=== PATIENT | male | born 1945 | race Caucasian/White ===

== ENCOUNTER 2018-04-19 13:41 | Inpatient (IN) | payer MEDICARE, BC ==
[~2018-04-19] VITALS: Ht 165.1 cm; Wt 70.0 kg
[2018-04-19] MEDS ORDERED: IV NORMAL SALINE 1,000ML 1,000 ML IV ONE ×2 (14:00→14:15)
[2018-04-19 14:28] LABS: ALBUMIN 3.5 g/dL (3.4-5.0); ALBUMIN/GLOBULIN RATIO 1.1 (1.0-1.7); CALCIUM 8.6 mg/dL (8.5-10.1); CREATININE 1.6 mg/dL (0.7-1.3); GFR 42.8; MAGNESIUM 1.7 mg/dL (1.8-2.4); POTASSIUM 4.1 mmol/L (3.5-5.1); TOTAL BILIRUBIN 0.6 mg/dL (0.2-1.0); TOTAL PROTEIN 6.8 g/dL (6.4-8.2)
[2018-04-19 14:30] LABS: BASO # 0.1 x10^3/uL (0.0-0.2); BASO % 1 % (0-3); EOS # 0.2 x10^3/uL (0.0-0.7); EOS % 2 % (0-3); HEMATOCRIT 48.6 % (39.0-53.0); HEMOGLOBIN 16.1 g/dL (13.0-17.5); LYMPH # 4.2 x10^3/uL (1.0-4.8); LYMPH % 40 % (24-48); MEAN CORPUSCULAR HEMOGLOBIN 29 pg (25-35); MEAN CORPUSCULAR HGB CONC 33 g/dL (31-37); MEAN CORPUSCULAR VOLUME 86 fL (79-100); MONO # 0.7 x10^3/uL (0.0-1.1); MONO % 6 % (0-9); NEUT # 5.3 x10^3uL (1.8-7.7); NEUT % 51 % (31-73); RED BLOOD COUNT 5.66 x10^6/uL (4.30-5.70); RED CELL DISTRIBUTION WIDTH 14.4 % (11.5-14.5); WHITE BLOOD COUNT 10.4 x10^3/uL (4.0-11.0)
--- NOTE | 2018-04-19 15:05 | RAD ---
Examination: CT head, cervical spine, maxillofacial bones without contrast CT HEAD INDICATION: SYNCOPE/FELL COMPARISON: None Available. Exposure: One or more of the following individualized dose reduction techniques were utilized for this examination: 1. Automated exposure control 2. Adjustment of the mA and/or kV according to patient size 3. Use of iterative reconstruction technique TECHNIQUE: 5 mm contiguous axial images were obtained from the skull base to the vertex in both bone and soft tissue algorithm. FINDINGS: Bilateral basal ganglia calcifications identified. No evidence of acute intracranial hemorrhage. No extra-axial fluid collections. No mass effect or midline shift. Ventricular size is appropriate. Basal cisterns are patent. No fractures identified.Colvin-white differentiation is preserved.Globes and orbits are within normal limits. CT CERVICAL SPINE INDICATION: SYNCOPE/FELL COMPARISON: None Available. Technique: 2.5 mm contiguous axial images were obtained from the skull base through the cervicothoracic junction in both bone and soft tissue algorithm. Additional sagittal and coronal reconstructions were also performed. FINDINGS: There is severe intervertebral disc height loss identified at C4-C5, C5-C6, C6-C7 vertebral levels. The bilateral facets are well aligned. Linear sclerotic density identified in the intervertebral disc space at C6-C7 vertebral level could be an old disc spacer. There is moderate posterior disc bulge identified at C5-C6, vertebral levels. There is a 4 mm anterolisthesis of C4 on C5 and C7 on T1. The bilateral facets are well aligned. Moderate multilevel facet degenerative changes cervical spine. Mild emphysematous is identified in the apical lungs. Examination limited due to motion artifact. No obvious fracture line visualized. EXAM: CT FACIAL BONES WITHOUT CONTRAST History: SYNCOPE/FELL COMPARISON: 09/27/2008 TECHNIQUE: Noncontrast images of the facial bones are performed. Coronal and sagittal reformatted images are also presented for interpretation. FINDINGS: The bilateral orbital globes appear intact. There is oblique lucency identified in the posterolateral wall of the left maxillary sinus extending anteriorly probably nondisplaced fracture, best visualized on coronal image 27. Small mucosal thickening or density identified in the left maxillary sinus. The orbital atkins appear intact. IMPRESSION: 1. No acute intracranial findings. 2. Oblique lucency identified in the posterolateral wall of the left maxillary sinus extending anteriorly into its anterior wall, question nondisplaced fracture. Correlate for point tenderness. 3. Severe degenerative changes cervical spine as described above. If there is neck pain recommend MRI for further evaluation. Electronically signed by: Eliezer Solorio MD (04/19/2018 3:02 PM) [facility]
[2018-04-19 15:09] LABS: BACTERIA,URINE 0 /HPF (0-FEW); BILIRUBIN,URINE NEG (NEG); CLARITY,URINE CLEAR; COLOR,URINE YELLOW; GLUCOSE,URINE NEG (NEG); HYALINE CASTS, URINE OCC /HPF; NITRITE,URINE NEG (NEG); RBC,URINE 0 /HPF (0-2); SQUAMOUS EPITHELIAL CELL,UR OCC /LPF; UROBILINOGEN,URINE 0.2 mg/dL (0.2 mg/dL); WBC,URINE OCC /HPF (0-4)
--- NOTE | 2018-04-19 15:15 | RAD ---
EXAM: CHEST 1 VIEW History: Syncope COMPARISON: 11/25/2012 TECHNIQUE: Single portable radiograph of the chest FINDINGS: Low lung volumes and technique accentuates heart size and pulmonary vascularity. Mild right lung base airspace opacities likely atelectasis or infiltrate. Defibrillator pad projects over the right chest. IMPRESSION: Mild right lung base airspace opacity likely atelectasis or infiltrate. Electronically signed by: Eliezer Solorio MD (04/19/2018 3:12 PM) [facility]
[2018-04-19 15:36] LABS: AMPHETAMINE/METHAMPHETAMINE NEG (NEG); BARBITURATES NEG (NEG); BENZODIAZEPINES NEG (NEG); CANNABINOIDS POS (NEG); COCAINE NEG (NEG); METHADONE NEG (NEG); OPIATES NEG (NEG); PHENCYCLIDINE NEG (NEG)
--- NOTE | 2018-04-19 15:49 | PHYS DOC ---
Past History Past Medical History: COPD, GERD, High Cholesterol, Hypertension, Other Past Surgical History: Other Alcohol Use: None Drug Use: None Adult General Chief Complaint Chief Complaint: SYNCOPE HPI HPI Patient is a 72 year old male who brought in by EMS because of syncope and facial injury. Patient states he finished with his shopping and [employer] and while he was at parking lot he felt lightheadedness with dizziness and generalized weakness and shortness of breath without chest pain and focal neurodeficit. Patient had a syncopal episode that was witnessed by bystanders without seizure activity and fell and injured his face. EMS reported that patient had bradycardia without hypertension and was alert and oriented. She was alert and oriented had unable to ER and complaining of pain in his upper lip with laceration. Patient had blood pressure of 70s over 40s with heart rate of 50s at arrival to ER. Patient is Up-to-date with his tetanus immunization. Review of Systems Review of Systems Constitutional: Denies fever or chills [] Eyes: Denies change in visual acuity, redness, or eye pain [] HENT: Denies nasal congestion or sore throat [] Respiratory: Reports shortness of breath and chronic cough Cardiovascular: No additional information not addressed in HPI [] GI: Denies abdominal pain, nausea, vomiting, bloody stools or diarrhea [] : Denies dysuria or hematuria [] Musculoskeletal: Denies back pain or joint pain [] Integument: Denies rash or skin lesions [] Neurologic: Denies headache, focal weakness or sensory changes [] Endocrine: Denies polyuria or polydipsia [] All other systems were reviewed and found to be within normal limits, except as documented in this note. Current Medications Current Medications Current Medications Medications (Trade) Dose Ordered Sig/Gloria Start Time Stop Time Status Last Admin Dose Admin Sodium Chloride 1,000 ml @ 1,000 mls/hr 1X ONCE 04/19/18 14:15 04/19/18 15:14 04/19/18 14:00 1,000 MLS/HR Allergies Allergies Allergies Coded Allergies Type Severity Reaction Last Updated Verified No Known Drug Allergies 04/19/18 No Physical Exam Physical Exam Constitutional: Well developed, well nourished, mild acute distress, non-toxic appearance. [] HENT: Normocephalic, 1 cm longitudinal laceration of the inside of the upper lip in midline area with mild bleeding, bilateral external ears normal, oropharynx moist, no oral exudates, nose normal. [] Eyes: PERRLA, EOMI, conjunctiva normal, no discharge. [] Neck: Normal range of motion, no tenderness, supple, no stridor. [] Cardiovascular: Bradycardia, no murmur [] Lungs & Thorax: Bilateral breath sounds clear to auscultation [] Abdomen: Bowel sounds normal, soft, no tenderness, no masses, no pulsatile masses. [] Skin: Warm, dry, no erythema, no rash. [] Back: No tenderness, no CVA tenderness. [] Extremities: No tenderness, no cyanosis, no clubbing, ROM intact, no edema. [] Neurologic: Alert and oriented X 3, normal motor function, normal sensory function, no focal deficits noted. [] Psychologic: Affect normal, judgement normal, mood normal. [] Current Patient Data Vital Signs Vital Signs Date Time Temp Pulse Resp B/P (MAP) Pulse Ox O2 Delivery O2 Flow Rate FiO2 04/19/18 14:55 88 20 125/64 (84) 98 Room Air 4.0 04/19/18 13:42 97.5 Lab Results Laboratory Tests Test 04/19/18 13:48 04/19/18 14:40 White Blood Count 10.4 x10^3/uL (4.0-11.0) Red Blood Count 5.66 x10^6/uL (4.30-5.70) Hemoglobin 16.1 g/dL (13.0-17.5) Hematocrit 48.6 % (39.0-53.0) Mean Corpuscular Volume 86 fL (79-100) Mean Corpuscular Hemoglobin 29 pg (25-35) Mean Corpuscular Hemoglobin Concent 33 g/dL (31-37) Red Cell Distribution Width 14.4 % (11.5-14.5) Platelet Count x10^3/uL (140-400) Neutrophils (%) (Auto) 51 % (31-73) Lymphocytes (%) (Auto) 40 % (24-48) Monocytes (%) (Auto) 6 % (0-9) Eosinophils (%) (Auto) 2 % (0-3) Basophils (%) (Auto) 1 % (0-3) Neutrophils # (Auto) 5.3 x10^3uL (1.8-7.7) Lymphocytes # (Auto) 4.2 x10^3/uL (1.0-4.8) Monocytes # (Auto) 0.7 x10^3/uL (0.0-1.1) Eosinophils # (Auto) 0.2 x10^3/uL (0.0-0.7) Basophils # (Auto) 0.1 x10^3/uL (0.0-0.2) Platelet Estimate Pending Prothrombin Time 9.6 SEC (9.4-11.4) Prothrombin Time INR 1.0 (0.9-1.1) PTT 23 SEC (23-33) D-Dimer (Kirsten) 0.84 mg/L (0.00-0.50) H Sodium Level 140 mmol/L (136-145) Potassium Level 4.1 mmol/L (3.5-5.1) Chloride Level 105 mmol/L (98-107) Carbon Dioxide Level 27 mmol/L (21-32) Anion Gap 8 (6-14) Blood Urea Nitrogen 19 mg/dL (8-26) Creatinine 1.6 mg/dL (0.7-1.3) H Estimated GFR (Cockcroft-Gault) 42.8 BUN/Creatinine Ratio 12 (6-20) Glucose Level 153 mg/dL (70-99) H Lactic Acid Level 2.8 mmol/L (0.4-2.0) H Calcium Level 8.6 mg/dL (8.5-10.1) Magnesium Level 1.7 mg/dL (1.8-2.4) L Total Bilirubin 0.6 mg/dL (0.2-1.0) Aspartate Amino Transferase (AST) 24 U/L (15-37) Alanine Aminotransferase (ALT) 23 U/L (16-63) Alkaline Phosphatase 70 U/L (46-116) Creatine Kinase 135 U/L (39-308) Troponin I Quantitative 0.035 ng/mL (0-0.055) ZQ-Nqs-K-Type Natriuretic Peptide 120 pg/mL (0-124) Total Protein 6.8 g/dL (6.4-8.2) Albumin 3.5 g/dL (3.4-5.0) Albumin/Globulin Ratio 1.1 (1.0-1.7) Urine Collection Type Unknown Urine Color Yellow Urine Clarity Clear Urine pH 6.5 Urine Specific [place] 1.015 Urine Protein 30 mg/dl (NEG-TRACE) Urine Glucose (UA) Neg mg/dL (NEG) Urine Ketones (Stick) Neg mg/dL (NEG) Urine Blood Neg (NEG) Urine Nitrite Neg (NEG) Urine Bilirubin Neg (NEG) Urine Urobilinogen Dipstick 0.2 mg/dL (0.2 mg/dL) Urine Leukocyte Esterase Neg (NEG) Urine RBC 0 /HPF (0-2) Urine WBC Occ /HPF (0-4) Urine Squamous Epithelial Cells Occ /LPF Urine Bacteria 0 /HPF (0-FEW) Urine Hyaline Casts Occ /HPF Urine Mucus Mod /LPF EKG EKG EKG interpreted by me. EKG at 1447 showed sinus bradycardia at rate of 53, first -degree AV block with IA of 246, left barnett axis, T-wave abnormality in lateral leads, no acute ST and T-wave abnormalities, repeat EKG at 1356 showed sinus rhythm at rate of 77, prolonged IA, leftward axis, no acute ST and T-wave abnormalities. Radiology/Procedures Radiology/[place] [address] IMAGING REPORT Signed PATIENT: SLOAN LUJAN ACCOUNT: [id number] : 1945 LOCATION: ICU AGE: 72 SEX: M EXAM STATUS: ADM IN ORD. PHYSICIAN: RAHUL OWUSU MD REASON: syncope, elevated d-dimer PROCEDURE: CT ANGIOGRAPHY CHEST Examination: CT ANGIOGRAPHY CHEST History: Short of breath, syncope, Omni 350 70ml iv was given, creat 1.6, GFR 43ml Comparison/Correlation: None Findings: Axial images of chest were obtained following IV contrast contrast arteriography protocol. Sagittal and coronal reformatted images provided. MIP images provided. Minimal right middle lobe atelectasis is present at the anteromedial basilar aspect. No suspicious pulmonary nodule or mass lesions. Thoracic aorta is unremarkable for the patient's age although it is not opacified for arteriographic purposes. Cholecystectomy noted. Left renal cyst measuring 2.4 cm diameter is present and of approximately 25 Hounsfield units. There is a corresponding cyst noted at this site on 11/21/2018 CT abdomen and pelvis with contrast exam. No suspicious change although this finding is not included fully for purposes of this exam. Degenerative changes of the lower cervical spine and mid thoracic spine noted. Impression: No pulmonary arterial thromboembolic disease. No infiltrate. PQRS Compliance Statement: One or more of the following individualized dose reduction techniques were utilized for this examination: 1. Automated exposure control 2. Adjustment of the mA and/or kV according to patient size 3. Use of iterative reconstruction technique Electronically signed by: Diaz Leon MD (04/19/2018 4:41 PM) [facility] DICTATED AND SIGNED BY: DIAZ LEON MD DATE: 04/19/18 7864 CC: RAHUL OWUSU MD; HILDA VENCES MD; ELE TORIBIO ~ [address] [address] IMAGING REPORT Signed PATIENT: SLOAN LUJAN ACCOUNT: [id number] : 1945 LOCATION: ER AGE: 72 SEX: M EXAM STATUS: REG ER ORD. PHYSICIAN: RAHUL OWUSU MD REASON: fall PROCEDURE: CT CERVICAL SPINE WO CONTRAST Examination: CT head, cervical spine, maxillofacial bones without contrast CT HEAD INDICATION: SYNCOPE/FELL COMPARISON: None Available. Exposure: One or more of the following individualized dose reduction techniques were utilized for this examination: 1. Automated exposure control 2. Adjustment of the mA and/or kV according to patient size 3. Use of iterative reconstruction technique TECHNIQUE: 5 mm contiguous axial images were obtained from the skull base to the vertex in both bone and soft tissue algorithm. FINDINGS: Bilateral basal ganglia calcifications identified. No evidence of acute intracranial hemorrhage. No extra-axial fluid collections. No mass effect or midline shift. Ventricular size is appropriate. Basal cisterns are patent. No fractures identified.Colvin-white differentiation is preserved.Globes and orbits are within normal limits. CT CERVICAL SPINE INDICATION: SYNCOPE/FELL COMPARISON: None Available. Technique: 2.5 mm contiguous axial images were obtained from the skull base through the cervicothoracic junction in both bone and soft tissue algorithm. Additional sagittal and coronal reconstructions were also performed. FINDINGS: There is severe intervertebral disc height loss identified at C4-C5, C5-C6, C6-C7 vertebral levels. The bilateral facets are well aligned. Linear sclerotic density identified in the intervertebral disc space at C6-C7 vertebral level could be an old disc spacer. There is moderate posterior disc bulge identified at C5-C6, vertebral levels. There is a 4 mm anterolisthesis of C4 on C5 and C7 on T1. The bilateral facets are well aligned. Moderate multilevel facet degenerative changes cervical spine. Mild emphysematous is identified in the apical lungs. Examination limited due to motion artifact. No obvious fracture line visualized. EXAM: CT FACIAL BONES WITHOUT CONTRAST History: SYNCOPE/FELL COMPARISON: 09/27/2008 TECHNIQUE: Noncontrast images of the facial bones are performed. Coronal and sagittal reformatted images are also presented for interpretation. FINDINGS: The bilateral orbital globes appear intact. There is oblique lucency identified in the posterolateral wall of the left maxillary sinus extending anteriorly probably nondisplaced fracture, best visualized on coronal image 27. Small mucosal thickening or density identified in the left maxillary sinus. The orbital atkins appear intact. IMPRESSION: 1. No acute intracranial findings. 2. Oblique lucency identified in the posterolateral wall of the left maxillary sinus extending anteriorly into its anterior wall, question nondisplaced fracture. Correlate for point tenderness. 3. Severe degenerative changes cervical spine as described above. If there is neck pain recommend MRI for further evaluation. Electronically signed by: Eliezer Agustin MD (04/19/2018 3:02 PM) [facility] DICTATED AND SIGNED BY: ELIEZER AGUSTIN MD DATE: 04/19/18 1449 CC: RAHUL OWSUU MD; ELE TORIBIO ~ [address] [address] IMAGING REPORT Signed PATIENT: SLOAN LUJAN ACCOUNT: [id number] : 1945 LOCATION: ER AGE: 72 SEX: M EXAM STATUS: REG ER ORD. PHYSICIAN: RAHUL OWUSU MD REASON: fall PROCEDURE: CT HEAD AND MAXILLOFACIAL WO Examination: CT head, cervical spine, maxillofacial bones without contrast CT HEAD INDICATION: SYNCOPE/FELL COMPARISON: None Available. Exposure: One or more of the following individualized dose reduction techniques were utilized for this examination: 1. Automated exposure control 2. Adjustment of the mA and/or kV according to patient size 3. Use of iterative reconstruction technique TECHNIQUE: 5 mm contiguous axial images were obtained from the skull base to the vertex in both bone and soft tissue algorithm. FINDINGS: Bilateral basal ganglia calcifications identified. No evidence of acute intracranial hemorrhage. No extra-axial fluid collections. No mass effect or midline shift. Ventricular size is appropriate. Basal cisterns are patent. No fractures identified.Colvin-white differentiation is preserved.Globes and orbits are within normal limits. CT CERVICAL SPINE INDICATION: SYNCOPE/FELL COMPARISON: None Available. Technique: 2.5 mm contiguous axial images were obtained from the skull base through the cervicothoracic junction in both bone and soft tissue algorithm. Additional sagittal and coronal reconstructions were also performed. FINDINGS: There is severe intervertebral disc height loss identified at C4-C5, C5-C6, C6-C7 vertebral levels. The bilateral facets are well aligned. Linear sclerotic density identified in the intervertebral disc space at C6-C7 vertebral level could be an old disc spacer. There is moderate posterior disc bulge identified at C5-C6, vertebral levels. There is a 4 mm anterolisthesis of C4 on C5 and C7 on T1. The bilateral facets are well aligned. Moderate multilevel facet degenerative changes cervical spine. Mild emphysematous is identified in the apical lungs. Examination limited due to motion artifact. No obvious fracture line visualized. EXAM: CT FACIAL BONES WITHOUT CONTRAST History: SYNCOPE/FELL COMPARISON: 09/27/2008 TECHNIQUE: Noncontrast images of the facial bones are performed. Coronal and sagittal reformatted images are also presented for interpretation. FINDINGS: The bilateral orbital globes appear intact. There is oblique lucency identified in the posterolateral wall of the left maxillary sinus extending anteriorly probably nondisplaced fracture, best visualized on coronal image 27. Small mucosal thickening or density identified in the left maxillary sinus. The orbital atkins appear intact. IMPRESSION: 1. No acute intracranial findings. 2. Oblique lucency identified in the posterolateral wall of the left maxillary sinus extending anteriorly into its anterior wall, question nondisplaced fracture. Correlate for point tenderness. 3. Severe degenerative changes cervical spine as described above. If there is neck pain recommend MRI for further evaluation. Electronically signed by: Eliezer Agustin MD (04/19/2018 3:02 PM) [facility] DICTATED AND SIGNED BY: ELIEZER AGUSTIN MD DATE: 04/19/18 0690 CC: RAHUL OWUSU MD; ELE TORIBIO ~ [address] [address] IMAGING REPORT Signed PATIENT: SLOAN LUJAN ACCOUNT: [id number] : 1945 LOCATION: ER AGE: 72 SEX: M EXAM STATUS: REG ER ORD. PHYSICIAN: RAHUL OWUSU MD REASON: syncope PROCEDURE: PORTABLE CHEST 1V EXAM: CHEST 1 VIEW History: Syncope COMPARISON: 11/25/2012 TECHNIQUE: Single portable radiograph of the chest FINDINGS: Low lung volumes and technique accentuates heart size and pulmonary vascularity. Mild right lung base airspace opacities likely atelectasis or infiltrate. Defibrillator pad projects over the right chest. IMPRESSION: Mild right lung base airspace opacity likely atelectasis or infiltrate. Electronically signed by: Eliezer Agustin MD (04/19/2018 3:12 PM) [facility] DICTATED AND SIGNED BY: ELIEZER AGUSTIN MD DATE: 04/19/18 6550 CC: RAHUL OWUSU MD; ELE TORIBIO ~ Course & Med Decision Making Course & Med Decision Making Pertinent Labs and Imaging studies reviewed. (See chart for details) Dilution of patient in ER showed 72-year-old male patient with a syncopal fall and hypotension and bradycardia at arrival to ER. Patient treated with IV fluid and his heart rate and blood pressure increased. Patient was alert and oriented with NIHS of 0. Patient had laceration of upper lip that was repaired. Patient had elevation of lactic acid and d-dimer with unremarkable CT of chest. Dr Vences was informed at 1408 and agreed with admission of patient. consulted at 7792 and agreed with plan of care. Dragon Disclaimer Dragon Disclaimer This electronic medical record was generated, in whole or in part, using a voice recognition dictation system. Departure Departure: Impression: Primary Impression: Syncope and collapse Additional Impressions: Vasovagal episode Laceration of oral cavity Elevated d-dimer Disposition: ADMITTED INPATIENT (at 1535) Admitting Physician: Hilda Vences (accepted admission at 1408) Condition: IMPROVED Referrals: ELE TORIBIO (PCP) NIHSS - ED NIH Stroke Scale: NIH Stroke Scale Response (Comments) Value Level of Consciousness: 0 Alert/Responsive 0 LOC Questions: 0 Answers both correctly 0 Best Gaze: 0 Normal 0 Visual: 0 No visual loss 0 Facial Palsy: 0 Normal, symmetrical 0 Motor - Left Arm 0 No drift 0 Motor - Right Arm 0 No drift 0 Motor - Left Leg 0 No drift 0 Motor: Right Leg 0 No drift 0 Limb Ataxia: 0 Absent 0 Sensory: 0 No loss 0 Best Language: 0 Normal 0 Dysathria: 0 Normal 0 Extinction and Inattention: 0 Normal 0 Total 0 Critical Care Time Critical care time was 70 minutes exclusive of procedures. Laceration Repair Lac Repair Indication: Oral mucosa laceration Procedure: The patient was placed in the appropriate position and anesthesia around the side of upper lip was given with 1% lidocaine without epinephrine.. The area was then cleaned with normal saline.. The laceration was repaired in 1 layer with 4 sutures of 5-0 Vicryl . Total repaired wound length:1 cm Other Items:none The patient tolerated the procedure Well Complications:None. Problem Qualifiers RAHUL OWUSU MD Apr 19, 2018 15:49
[2018-04-19] MEDS ORDERED: IOHEXOL 350 MG/ML 100 ML VIAL. IV ONE (16:00)
--- NOTE | 2018-04-19 16:44 | RAD ---
Examination: CT ANGIOGRAPHY CHEST History: Short of breath, syncope, Omni 350 70ml iv was given, creat 1.6, GFR 43ml Comparison/Correlation: None Findings: Axial images of chest were obtained following IV contrast contrast arteriography protocol. Sagittal and coronal reformatted images provided. MIP images provided. Minimal right middle lobe atelectasis is present at the anteromedial basilar aspect. No suspicious pulmonary nodule or mass lesions. Thoracic aorta is unremarkable for the patient's age although it is not opacified for arteriographic purposes. Cholecystectomy noted. Left renal cyst measuring 2.4 cm diameter is present and of approximately 25 Hounsfield units. There is a corresponding cyst noted at this site on 11/21/2018 CT abdomen and pelvis with contrast exam. No suspicious change although this finding is not included fully for purposes of this exam. Degenerative changes of the lower cervical spine and mid thoracic spine noted. Impression: No pulmonary arterial thromboembolic disease. No infiltrate. PQRS Compliance Statement: One or more of the following individualized dose reduction techniques were utilized for this examination: 1. Automated exposure control 2. Adjustment of the mA and/or kV according to patient size 3. Use of iterative reconstruction technique Electronically signed by: Diaz Small MD (04/19/2018 4:41 PM) [facility]
[2018-04-19] MEDS ORDERED: OMEP1CAP PO (17:26)
[2018-04-19] MEDS ORDERED: VARE0.5T PO (17:32)
[2018-04-19] MEDS ORDERED: FLUT1AER IH (17:32)
[2018-04-19] MEDS ORDERED: MIRA25TA PO (17:32)
[2018-04-19] MEDS ORDERED: PRED20TA PO (17:44)
[2018-04-19] MEDS ORDERED: AMOX500C PO (17:45)
[2018-04-19] MEDS ORDERED: LISI-334 PO (17:47)
[2018-04-19] MEDS ORDERED: METO-239 PO (17:50)
[2018-04-19] MEDS ORDERED: DOXY100C14 PO (17:52)
[2018-04-19] MEDS ORDERED: TAMS0.4C97 PO (17:52)
[2018-04-19] MEDS ORDERED: NICO1PAT21 TP (17:52)
[2018-04-19 17:56] VITALS: BP 149/80
--- NOTE | 2018-04-19 18:10 | EKG ---
[address] [address] Test Date: 2018-04-19 Test Time: 13:56:52 Pat Name: SLOAN LUJAN Department: Room: ICU03 1 Gender: M Metal Caster: VAISHNAVI : 1945 Requested By: RAHUL OWUSU Order Number: [id number] Reading MD: Stuart Christopher MD Measurements Intervals [place] Rate: 77 P: 90 NH: 266 QRS: -25 QRSD: 96 T: 116 QT: 422 QTc: 480 Interpretive Statements SINUS RHYTHM PROLONGED NH INTERVAL Electronically Signed On 04-20-2018 11:47:47 PAINT TECHNICIAN by Stuart Christopher MD
[2018-04-19] MEDS: ALBUTEROL SULFATE 2.5 MG/3 ML NEBU. NEB SCH ×2 (19:00→20:22)
[2018-04-19 19:39] VITALS: BP 153/75
[2018-04-19] MEDS: BUDESONIDE 0.5 MG/2 ML NEBU NEB SCH (20:22)
[2018-04-19] MEDS ORDERED: TAMSULOSIN 0.4 MG CAP.ER.24H. PO SCH (21:00)
[2018-04-19 23:19] LABS: PLT ESTIMATE ADEQUATE (ADEQUATE)
[2018-04-19 23:20] LABS: POLYCHROMASIA SLIGHT
[2018-04-20] MEDS: ALBUTEROL SULFATE 2.5 MG/3 ML NEBU. NEB SCH ×2 (04:57→10:12)
[2018-04-20 06:03] VITALS: BP 157/75
[2018-04-20 06:34] LABS: HEMOGLOBIN 15.3 g/dL (13.0-17.5); RED BLOOD COUNT 5.35 x10^6/uL (4.30-5.70); RED CELL DISTRIBUTION WIDTH 14.5 % (11.5-14.5); WHITE BLOOD COUNT 8.6 x10^3/uL (4.0-11.0)
[2018-04-20 06:44] LABS: ALBUMIN 3.2 g/dL (3.4-5.0); CALCIUM 8.4 mg/dL (8.5-10.1); CREATININE 1.3 mg/dL (0.7-1.3); GFR 54.4; POTASSIUM 3.7 mmol/L (3.5-5.1); TOTAL BILIRUBIN 0.4 mg/dL (0.2-1.0); TOTAL PROTEIN 6.4 g/dL (6.4-8.2)
[2018-04-20] MEDS ORDERED: PANTOPRAZOLE 40 MG TABLET. PO SCH (07:30)
[2018-04-20] MEDS ORDERED: NICOTINE 21MG PATCH. TD SCH (09:00)
[2018-04-20] MEDS ORDERED: VARENICLINE 0.5 MG TABLET. PO SCH (09:00)
[2018-04-20] MEDS ORDERED: predniSONE 20 MG TABLET PO SCH (09:00)
[2018-04-20] MEDS ORDERED: MIRABEGRON 25 MG TAB.ER.24H PO SCH (09:00)
[2018-04-20] MEDS ORDERED: NON FORMULARY ITEM (Fluticasone/Vilanterol (Breo Ellipta 100-25 Mcg Inh) 1 PUFF) IH SCH (09:00)
[2018-04-20] MEDS: BUDESONIDE 0.5 MG/2 ML NEBU NEB SCH (10:10)
[2018-04-20 10:45] VITALS: BP 150/70
[2018-04-20] MEDS ORDERED: ATOR20TA PO (13:32)
--- NOTE | 2018-04-20 14:04 | HP ---
ADMIT DATE: 04/20/2018 HISTORY OF PRESENT ILLNESS: The patient is a 72-year-old male patient, who was brought by the ambulance because of syncope and facial injury. The patient stated that he has finished his shopping in [facility] and while he was at the parking lot, he felt light headedness, dizziness and generalized weakness and shortness of breath without chest pain or focal neuro deficit. He had a syncopal episode that was witnessed by bystanders without seizure activity and fell and injured his face. Emergency medical service personnel reported the patient had bradycardia without hypertension, was alert and oriented. On arrival to the Emergency Room, he was complaining of pain in his upper lip with laceration. His blood pressure was only in 70s/40s, with a heart at 50 beats per minute. He was evaluated in the Emergency Room and he was given at least 2 liters of fluid. His EKG showed that he was in sinus bradycardia with heart rate of 53 with a first degree AV block and NC interval 246 milliseconds, left axis deviation, T-wave abnormalities in lateral leads. No acute ST-T changes seen. His lab work showed that he has elevated D-dimer at 0.84 mg/dL and has had a CT angiogram of the chest, which showed no pulmonary arterial thromboembolic disease. No infiltrate. The patient was admitted to the ICU for close observation. PAST MEDICAL HISTORY: Significant for benign prostatic hypertrophy, hypertension, COPD, generalized osteoarthritis. PAST SURGICAL HISTORY: Significant for cervical spine surgery, back surgery x 2, left knee arthroscopic surgery, bilateral rotator cuff repair, cholecystectomy, tonsillectomy. He has vein stripping of his left lower extremity, esophagogastroduodenoscopy, multiple colonoscopies and polypectomies. ALLERGIES: He has no known drug allergies. MEDICATIONS: He is currently on following medications: He is currently on omeprazole 40 mg once a day, Chantix 0.5 mg once a day, prednisone has completed the course of treatment, he is on lisinopril 20 mg once a day, metoprolol succinate extended release 25 mg once a day. He is on Lipitor 20 mg at bedtime, and tamsulosin 0.4 mg he takes 3 tablets at bedtime. ALLERGIES: He has no known drug allergies. FAMILY HISTORY: He has 2 brothers, who are . The older brother of prostate cancer. The younger brother of lung cancer. He has 2 brothers, who are still alive. One has coronary artery bypass graft surgery, the other one is healthy. He does not know his sister. He has not seen for more than 20 years. His father at age of 47 as he was run over by a train. Mother in her 50s. The cause of her is not known to him. SOCIAL HISTORY: He is . He has a son and daughter. Continue to smoke one and a half pack a day, does not drink alcohol, but smokes marijuana on a daily basis. REVIEW OF SYSTEMS: He has floater in the eye, but denied any cataract, glaucoma or macular degeneration. Did complain of tinnitus, but denied any earache or sensorineural deafness. Denied any nosebleeds, stuffy nose or postnasal drip. Denied any sore throat, sore tongue, toothache, hoarseness of voice or difficulty swallowing. He denied any nausea, vomiting, diarrhea or constipation. Denied any hematemesis, melena or hematochezia. He denied any dysuria, frequency or hematuria, but did complain of nocturia. He denied any chest pain, shortness of breath, orthopnea or paroxysmal nocturnal dyspnea. Denied any cough, phlegm or hemoptysis. Did complain he has dizziness and lightheadedness, but denied any chills, rigors or fever. PHYSICAL EXAMINATION: GENERAL: On arrival to the Emergency Room, his heart rate was 43 beats per minute, his blood pressure was 72/26, his temperature was 97.5, respiratory rate was 20 and his oxygen saturation was 94% on room air. HEAD, EYES, EARS, NOSE AND THROAT: Showed normocephalic, atraumatic. NECK: Supple. HEART: Showed normal first and second heart sounds with no gallop, rub or murmur. CHEST: Clear to auscultation. No crepitation or rhonchi. ABDOMEN: Distended, soft, nontender. No guarding or rigidity. No organomegaly. All hernial orifice intact. Bowel sounds normal. NEUROLOGIC: He was alert, oriented x 3 with normal motor and sensory function with no focal deficit. His affect was normal. Judgment and mood were normal. LABORATORY DATA: While in the Emergency Room, he has had extensive investigation including a 12-lead EKG, which showed that he was in sinus bradycardia with a heart rate of 53 beats per minute with first-degree AV block and NC interval of 246 milliseconds. There were some T-wave abnormalities in the lateral leads. No acute ST-T wave abnormalities. His chest x-ray showed that the patient has low lung volumes and thickening extending into the heart size and pulmonary vascularity. He has mild right lung airspace opacities, likely atelectasis or infiltrate. Defibrillator pads projects over the right chest. CT scan of the head and cervical spine showed that he has bilateral basal ganglia calcification identified. No evidence of acute intracranial hemorrhage, no extraaxial fluid collection, no mass effect or midline shift, ventricular size is appropriate. Basal cisterns are patent. No fracture identified. The Colvin-white differentiation is preserved. Globes and orbits are within normal limits. His cervical spine showed that there is severe intervertebral disk height loss identified at C4-C5, C5-C6, C6-C7 vertebral levels. Bilateral facets are well aligned, linear, sclerotic density identified in the intervertebral disk space at C6-C7. Vertebral level could be an old disk space. There is moderate posterior disk bulge identified at C5-C6 vertebral levels. There is on a 4 mm anterolisthesis on C4-C5 and C5-T1. The bilateral facets are well aligned, moderate, multilevel facet, degenerative changes of cervical spine. He has mild emphysematous changes identified in the apical lung. Examination limited due to motion artifact, but no obvious fracture. CT angiogram of the chest done because of elevated D-dimer and syncope showed that the patient has minimal right middle lobe atelectasis present at the anteromedial basilar aspect. No suspicious pulmonary nodule or mass lesions. The thoracic aorta is unremarkable for the patient's age, although it is not opacified for arteriographic purposes. He has cholecystectomy noted left renal cyst measuring 2.4 cm diameter is present and of approximately 25 Hounsfield units. There is a corresponding cyst noted at this site on 11/21/2017. CT abdomen and pelvis with contrast exam. No suspicious changes, although this finding is not included fully for purposes of this exam. Degenerative changes in the lower cervical spine and mid thoracic spine noted with the impression that the patient has no pulmonary arterial thromboembolic disease. No infiltrate. His lab work showed that his white cell count was 10,400, hemoglobin 16, hematocrit 48, MCV 86 and platelet count of 245,000. His chemistry showed that his serum sodium was 140, potassium 4.1, chloride 105, bicarbonate 27, anion gap of 8, BUN 19, creatinine 1.6, estimated GFR was 42 mL per minute. His glucose was 153, calcium was 8.6, magnesium was 1.7. Total bilirubin, AST, ALT, alkaline phosphatase were normal. CK was 135 and his first set of troponin was 0.035. His total protein was 6.8, albumin was 3.5. His prothrombin time was 9.6, INR of 1, aPTT was 23 and D-dimer was 0.84. Urinalysis showed the urine was yellow, clear with a pH of 6.5, specific gravity of 1.015, small amount of protein. The urine was negative for glucose, ketones, blood, nitrite, leukocyte esterase. There is no rbc's, no wbc's, and no bacteria. His toxic screen was positive for cannabinoids. IMPRESSION AND PLAN: In summary, this is a 72-year-old male patient was admitted with syncopal episode. On arrival, his heart rate was only 43 and blood pressure was only 70/40 systolic. Apparently, he has received at least 2 liters of fluid in the Emergency Room and was admitted. He was also found to have laceration of oral cavity and elevated D-dimer. His laceration was repaired with one layer of 5-0 Vicryl and was admitted to do 2 more sets of cardiac enzymes to consult the cardiology team and Dr. Christopher was informed of the presentation and recommended admission to the ICU at [facility]. The patient did receive 2 liters of fluid. I did continue most of his medication except his lisinopril and metoprolol. We will obviously follow him closely. Check his lab work to make sure that he is stable and we will decide the further management accordingly. HILDA KNAPP MD DR: GISELE/brisa JOB#: [id number] / [id number]
[2018-04-20] MEDS ORDERED: LISI10TA2 PO (14:30)
[2018-04-20 14:45] VITALS: BP 154/74
--- NOTE | 2018-04-20 15:05 | DS ---
DATE OF DISCHARGE: 04/20/2018 HOSPITAL COURSE: The patient is a 72-year-old male patient who was admitted with a syncopal episode and collapsed during which he sustained laceration of his left upper lip that was treated surgically. He was bradycardic with a heart rate of 43 beats per minute and his blood pressure was 70/40. He did receive large amount of fluid about 2 liters of fluid and we did contact his pharmacy and it turned out that he was on metoprolol and lisinopril. When I saw him today, he was awake, alert, responding appropriately. He has had no further syncopal episode. His blood pressure has been stable. PHYSICAL EXAMINATION: GENERAL: When I examined him this afternoon, he looked well. No pallor, jaundice, cyanosis, or thyromegaly. No jugular venous distension. No lower limb edema. VITAL SIGNS: His heart rate was 78, blood pressure 150/70, temperature was 98.2, respiratory rate was 20, and oxygen saturation was 96%. HEAD, EYES, EARS, NOSE AND THROAT: Showed normocephalic, atraumatic. NECK: Supple. HEART: Showed normal first and second heart sounds. No gallop, rub or murmur. CHEST: Clear to auscultation. No crepitation or rhonchi. ABDOMEN: Distended, soft, nontender. No guarding or rigidity. No organomegaly. All hernial orifices are intact. Bowel sounds are normal. NEUROLOGICAL: He was awake, alert, responding appropriately. All cranial nerves are intact. He moves extremities without difficulty, ambulates without assistance or assistive devices. LABORATORY DATA: His lab work this morning showed a white cell count of 8600, hemoglobin 15.3, hematocrit 46, MCV 86 and platelet count 245,000. His chemistry showed a serum sodium 142, potassium 3.7, chloride 106, bicarbonate 27, anion gap of 9, BUN 15, creatinine 1.3. Estimated GFR was 54 mL per minute. His glucose 135, calcium was 8.4. Total bilirubin, AST, ALT, alkaline phosphatase were normal. His total protein was 6.4, albumin 3.2. DISCHARGE MEDICATIONS: The patient will be discharged home to continue on following medication. We will discontinue his metoprolol and I will cut down his lisinopril only to 10 mg once a day. The Cardiology team aware of these and agreed to these changes and they will mail him, an event monitor and should follow with them in their clinic. FINAL DISCHARGE DIAGNOSES: Syncope with marked bradycardia and hypotension, probably a combination of beta blockers and excessive antihypertensive medication and probably he might have also sick sinus syndrome. I will discontinue the metoprolol, cut down lisinopril to 10 mg once a day. Continue with all his other medications. HILDA KNAPP MD DR: GISELE/brisa JOB#: [id number] / [id number]
== END 2018-04-20 14:49 | disposition home or self-care (01) | DRG 314 ==
LOC: ER 13:41 → ICU 15:08
PROVIDERS: ADMIT Internal Medicine; ATTEND Internal Medicine
PROC: 0HQ1XZZ Repair Face Skin, External Approach (ICD-10-PCS; principal; 2018-04-19)
DX: I95.9 Hypotension, unspecified (principal); N17.0 Acute kidney failure with tubular necrosis; J98.11 Atelectasis; S01.512A Laceration without foreign body of oral cavity, initial encounter; I49.5 Sick sinus syndrome; Z80.42 Family history of malignant neoplasm of prostate; E78.00 Pure hypercholesterolemia, unspecified; F12.90 Cannabis use, unspecified, uncomplicated; F17.200 Nicotine dependence, unspecified, uncomplicated; I10 Essential (primary) hypertension; I44.0 Atrioventricular block, first degree; J44.9 Chronic obstructive pulmonary disease, unspecified; K21.9 Gastro-esophageal reflux disease without esophagitis; M15.9 Polyosteoarthritis, unspecified; N40.0 Benign prostatic hyperplasia without lower urinary tract symptoms; Z80.1 Family history of malignant neoplasm of trachea, bronchus and lung
CPT/HCPCS: 12011; 36415; 70450; 70486; 71045; 71275; 72125; 80053; 80307; 81001; 82550; 83605; 83735; 83880; 84484; 85025; 85027; 85379; 85610; 85730; 87040; 93005; 94640; J7613; J7626; 99291-25; J7030